=== PATIENT | female | born 1955 | race Caucasian/White ===

== ENCOUNTER → 2020-12-11 | Outpatient (CLI) | payer BC ==
[~2020-12-11] MED LIST: VENTOLIN HFA 66.7 GM INH; ZOFRAN ODT 4 MG4 MG PO
== END ==
LOC: KOH-I 14:08
DX: E07.9 Disorder of thyroid, unspecified (principal); R06.02 Shortness of breath; E89.0 Postprocedural hypothyroidism
CPT/HCPCS: 71046; 76536

== ENCOUNTER 2021-01-02 02:21 | Emergency (ER) | payer BC ==
[2021-01-02] MEDS ORDERED: VENTOLIN HFA 66.7 GM INH (04:15)
[2021-01-02] MEDS ORDERED: ZOFRAN ODT 4 MG4 MG PO (04:15)
== END 2021-01-02 04:20 | disposition home or self-care (01) ==
LOC: ER1 02:21
DX: U07.1 COVID-19 (principal)
CPT/HCPCS: 71045; 99285

== ENCOUNTER 2021-07-02 17:27 | Emergency (ER) | payer BC ==
[2021-07-02] MEDS ORDERED: IBUPROFEN800 MG PO (18:04)
== END 2021-07-02 18:30 | disposition home or self-care (01) ==
LOC: ER1 17:27
DX: M77.8 Other enthesopathies, not elsewhere classified (principal); I10 Essential (primary) hypertension
CPT/HCPCS: 99283

== ENCOUNTER 2021-12-10 08:59 | Emergency (ER) | payer BC ==
[~2021-12-10 08:59] MED LIST changes: +IBUPROFEN800 MG PO
[2021-12-10 09:43] LABS: HEMOGLOBIN 15.8 gm/dl (12.3-15.3); RED BLOOD COUNT 5.45 M/UL (4.00-5.10); WHITE BLOOD COUNT 11.1 K/UL (4.5-11.0)
[2021-12-10 10:34] LABS: BUN/CREATININE RATIO 27 (0-10)
== END 2021-12-10 12:41 | disposition home or self-care (01) ==
LOC: ER1 08:59
PROVIDERS: Family Medicine
DX: I44.7 Left bundle-branch block, unspecified (principal); I10 Essential (primary) hypertension
CPT/HCPCS: 71045; 80053; 82550; 82553; 83880; 84439; 84443; 84484; 85025; 93005; 99285

== ENCOUNTER 2021-12-30 18:25 | Emergency (ER) | payer BC ==
[~2021-12-30 18:25] MED LIST changes: -MEDROL4 MG PO
[2021-12-30 19:30] LABS: HEMOGLOBIN 15.7 gm/dl (12.3-15.3); RED BLOOD COUNT 5.37 M/UL (4.00-5.10); WHITE BLOOD COUNT 10.6 K/UL (4.5-11.0)
[2021-12-30 19:45] LABS: BUN/CREATININE RATIO 34 (0-10)
[2021-12-30] MEDS ORDERED: MEDROL4 MG PO (20:06)
== END 2021-12-30 20:35 | disposition home or self-care (01) ==
LOC: ER1 18:25
PROVIDERS: Preventive Medicine Occupational Medicine
DX: T78.40XA Allergy, unspecified, initial encounter (principal); I10 Essential (primary) hypertension
CPT/HCPCS: 80048; 85025; 96374; 96375; 99283; J1200; J2930

== ENCOUNTER → 2021-12-30 | Outpatient (CLI) | payer BC ==
[~2021-12-30] MED LIST changes: +MEDROL4 MG PO
== END ==
LOC: ECHO 08:58
DX: Z01.810 Encounter for preprocedural cardiovascular examination (principal); R94.31 Abnormal electrocardiogram [ECG] [EKG]; I44.7 Left bundle-branch block, unspecified; I27.20 Pulmonary hypertension, unspecified; I07.1 Rheumatic tricuspid insufficiency
CPT/HCPCS: ECHO; 93306